=== PATIENT | female | born 1930 | race Caucasian/White ===

== ENCOUNTER 2016-05-26 13:55 | Emergency (ER) | payer OTHER ==
[2016-05-26] MEDS ORDERED: ASPIRIN PO STA (13:57)
--- NOTE | 2016-05-26 14:05 | EKG Report ---
Test Performed on : 05/26/2016 1:56:35 PM Test Reason : CHEST PAIN Blood Pressure : / mmHG Vent. Rate : 084 BPM Atrial Rate : 084 BPM P-R Int : 166 ms QRS Dur : 084 ms QT Int : 386 ms P-R-T Axes : 073 011 062 degrees QTc Int : 456 ms Normal sinus rhythm. Normal ECG When compared with ECG of 11-DEC-2015 10:51, No significant change was found Unconfirmed Result
[2016-05-26 14:19] LABS: MANUAL DIFF NEEDED? NO
[2016-05-26 14:21] LABS: BASO% 0.5 % (0.0-0.8); EOS# 0.09 X1000 (0.0-0.7); EOS% 2.1 % (0.0-10.0); HEMATOCRIT 36.3 % (37.0-47.0); HEMOGLOBIN 12.3 g/dL (12.0-16.0); IMM GRAN# 0.01 X1000 (0.0-0.04); IMM GRAN% 0.2 % (0.0-0.5); LYMPH% 32.2 % (20.5-51.1); MCH 31.1 PG (27-31); MCHC 33.9 g/dL (33-37); MCV 91.7 FL (81-99); MONO# 0.44 X1000 (0.11-0.59); MONO% 10.1 % (1.7-9.3); MPV 9.6 FL (7.4-10.4); NEUT% 54.9 % (42.2-75.2); PLT 247 X1000 (130-400); RBC 3.96 XMIL (4.2-5.4)
[2016-05-26 14:37] LABS: INR 0.99 (0.86-1.15); PROTIME 13.4 Seconds (12.1-15.5); PTT PL 28.6 Seconds (22.6-43.9)
[2016-05-26 14:53] LABS: AGAP 9; ALBUMIN 4.4 g/dL (3.5-5.0); ALKALINE PHOSPHATASE 66 U/L (32-104); BUN 12 mg/dL (8-22); CALCIUM 9.8 mg/dL (8.8-10.2); CHLORIDE 101 mmol/L (98-107); CK PROFILE 102 U/L (24-173); COSMO 278; GOT 22 U/L (10-30); GPT 14 U/L (10-36); MAGNESIUM 2.1 mg/dL (1.5-2.7); POTASSIUM 3.5 mmol/L (3.5-5.1); SODIUM 139 mmol/L (136-145); TCO2 29 mmol/L (25-35); TOTAL PROTEIN 6.7 g/dL (6.3-8.3)
--- NOTE | 2016-05-26 15:04 | PROVIDER DOCUMENTATION ---
HPI-Chest Pain - General Source: patient - History of Present Illness-CP Location: reports: other (L side) Chest Pain Radiation: reports: arms (L), neck Quality of Pain: reports: aching Severity in ED: mild Onset/Duration: 2 days ago Timing: still present, constant Context/Activities at Onset: reports: light activity Modifying Factors: improves with: nothing Associated Symptoms: reports: dizziness, nausea, shortness of breath Nitro Today/Relief: no nitro taken today Aspirin Treatment Today: no aspirin today Prior Chest Pain/Cardiac Workup: reports: no prior chest pain, no prior cardiac workup Similar Symptoms Previously?: Yes Recently Seen Here or By Another Healthcare Provider: No <Giovanna Almendarez - Last Filed: 05/26/16 17:54> <aDvid Nix - Last Filed: 05/26/16 17:58> - General Chief Complaint: Chest Pain Stated Complaint: CHEST PAIN Time Seen by Provider: 05/26/16 14:54 Allergies/Adverse Reactions: Patient Allergies Allergy/AdvReac Type Severity Reaction Status Date / Time adhesive tape Allergy RASH Verified 12/11/15 10:21 Home Medications: Home Medication List Medication Instructions Recorded Confirmed Last Taken Type Amitriptyline [Elavil] 0.5 tab PO HS 12/11/15 12/11/15 12/13/15 05:30 History Cetirizine HCl [Zyrtec] 10 mg PO DAILY 12/11/15 12/11/15 12/13/15 05:30 History Cholecalciferol (Vitamin D3) 2,000 unit PO DAILY 12/11/15 12/11/15 12/13/15 05: 30 History [Vitamin D3] Cyanocobalamin (Vitamin B-12) 1,000 mcg PO DAILY 12/11/15 12/11/15 12/13/15 05: 30 History [Vitamin B-12] Dicyclomine [Bentyl] 10 mg PO TID AC 12/11/15 12/11/15 12/13/15 05:30 History Diphenoxylate/Atropine [Lomotil] 1 each PO 4XDAY PRN PRN 12/11/15 12/11/1512/12 05:30 History Escitalopram Oxalate [Lexapro] 1.5 tab PO DAILY 12/11/15 12/11/15 12/13/15 05: 30 History Fluticasone Propionate [24 Hour 1 spray INH QHS 12/11/15 12/11/15 12/12/15 22: 00 History Allergy Relief] Gabapentin [Neurontin] 300 mg PO TID 12/11/15 12/11/15 12/13/15 05:30 History Hydrocodone/Acetaminophen [[place] 1 each PO PRN PRN 12/11/15 12/11/15 12/13/15 05 :30 History 10-325 Tablet] Lorazepam [Ativan] 0.5 mg PO TID 12/11/15 12/11/15 12/13/15 05:30 History Oxybutynin [Ditropan] 5 mg PO DAILY 12/11/15 12/11/15 12/13/15 05:30 History PRAVAstatin [Pravachol] 40 mg PO QHS 12/11/15 12/11/15 12/12/15 22:00 History Temazepam [Restoril] 15 - 30 mg PO PRN PRN 12/11/15 12/11/15 12/13/15 05:30 History Hydrocodone/APAP 10 mg/325 mg 1 each PO Q4H PRN PRN #60 tablet 12/15/15 Unknown Rx [[place]-10] - History of Present Illness-CP Nature of Presenting Problem: Pt is 85 y/o F presents to the ED with L side chest pain. Pt state CP started Friday and has been constant since. Pt states pain has radiated to neck and down L arm. Pt states intermittent SOB, N and dizziness. Pt denies F (Giovanna Almendarez) Review of Systems - Adult - REVIEW OF SYSTEMS - ADULT Constitutional: denies: chills, fever Eyes: denies: blurred vision, double vision Ears, Nose, Mouth & Throat: denies: ear pain, nose pain, throat pain Cardiovascular: reports: chest pain. denies: heart murmur, irregular heart rate Respiratory: reports: shortness of breath. denies: cough, wheezing Gastrointestinal: reports: nausea. denies: abdominal pain, diarrhea, vomiting Genitourinary: denies: dysuria, hematuria, hesitency Musculoskeletal: denies: bone pain, joint pain, neck pain Integumentary: denies: hives, itching Neurological: reports: dizziness/vertigo (dizziness). denies: headache/ migraines Psychiatric: reports: no symptoms reported Endocrine: reports: no symptoms reported Hematologic/Lymphatic: reports: no symptoms reported Allergic/Immunologic: reports: no symptoms reported All Other Systems: Reviewed and Negative <Giovanna Almendarez - Last Filed: 05/26/16 17:54> Past History - Adult - PAST MEDICAL HISTORY-ADULT Review of Records: reports: Nursing Assessment Review, Medications Reviewed, Social history reviewed & non-contributory. Major Childhood Illnesses: reports: denies history Cardiovascular: reports: HTN, hyperlipidemia Respiratory: reports: denies history Gastrointestinal: reports: denies history Obstetrical/Gynecological: reports: denies history Genitourinary: reports: cancer Musculoskeletal: reports: denies history Neurological: reports: denies history Endocrine/Immune: reports: denies history Other Conditions: reports: denies history - PRIOR SURGERIES/PROCEDURES Surgical/Procedure History: reports: hysterectomy - IMMUNIZATION STATUS Childhood Immunizations: See Nurse Assessment Flu Vaccine: See Nurse Assessment - FAMILY HISTORY Family History: reviewed, not pertinent - SOCIAL HISTORY Smoking: denies Substance Use: alcohol Alcohol Use Frequency: occasionally Number of drinks per typical drinking period:: 2 drinks Living Situation: family <Giovanna Almendarez - Last Filed: 05/26/16 17:54> Physical Exam-General - PHYSICAL EXAM-ADULT Initial Vital Signs Reviewed: Yes - CONSTITUTIONAL General Appearance: appears well, alert, no apparent distress - EYES Eyes: PERRL/EOMI, pink conjunctivae, fundi clear, no AV nicking - HEAD, EARS, NOSE, MOUTH & THROAT HENMT: normocephalic/atraumatic, moist mucous membranes, normal ENT inspection, TMs normal, pharynx normal - NECK Neck: non-tender, full range of motion, supple, normal inspection - RESPIRATORY Respiratory: chest non-tender, lungs clear, normal breath sounds, no pleuratic chest pain, no respiratory distress, no accessory muscle use - CARDIOVASCULAR Cardiovascular: normal peripheral pulses, regular rate, rhythm, no edema, no gallop, no JVD, no murmur - GASTROINTESTINAL (ABDOMEN) Abdominal Exam: normal bowel sounds, non tender, soft, no organomegaly, no pulsatile mass - LYMPHATIC Lymphatic: no adenopathy - MUSCULOSKELETAL Back Exam: normal inspection, no CVA tenderness, no vertebral tenderness Extremity: normal range of motion, non-tender, normal gait, normal inspection, no pedal edema - SKIN Integumentary: normal color, normal turgor, warm/dry - NEUROLOGIC Neurologic: grossly normal - PSYCHIATRIC Psych/Mental Status: normal mood/affect, oriented x 3 <Giovanna Almendarez - Last Filed: 05/26/16 17:54> Progress - EKG 1 Time of EKG reading by physician:: 13:56 EKG Read and Signed by:: David Nix EKG Interpretation (*Must complete 3 of following elements*): Normal Rate: 84 Rhythm: normal sinus rhythm Comments: normal ECG 2 Time of EKG reading by physician:: 16:14 EKG Read and Signed by:: David Nix EKG Interpretation (*Must complete 3 of following elements*): Normal Rate: 74 Rhythm: normal sinus rhythm Comments: normal ECG - XRAY 1 XRAY: Bilateral XRAY Study: Chest Impression: Normal XRAY Interpretation: no acute disease - CT/MRI 1 CT Study: Angiogram Impression: Abnormal (likely atelectasis or fibrosis in the right base rather than pneumonia) CT Results: no PE. <Giovanna Almendarez - Last Filed: 05/26/16 17:54> <David Nix - Last Filed: 05/26/16 17:58> - PLAN OF CARE/RESULTS Progress/Plan/Lab Results: Laboratory Tests 05/26/16 05/26/16 05/26/16 13:58 13:58 13:58 WBC RBC Hgb Hct MCV MCH MCHC RDW Std Deviation Plt Count MPV Immature Gran % (Auto) Neut % (Auto) Lymph % (Auto) [place] % (Auto) Eos % (Auto) Baso % (Auto) Immature Gran # (Auto) Neut # (Auto) Lymph # (Auto) [place] # (Auto) Eos # (Auto) Baso # (Auto) PT INR APTT (Factor Assay) Sodium 139 Potassium 3.5 Chloride 101 Carbon Dioxide 29 Anion Gap 9 BUN 12 Creatinine 0.6 Estimated GFR/1.73 m2 > 60 BUN/Creatinine Ratio 20 Glucose 117 H Calculated Osmolality 278 Calcium 9.8 Magnesium 2.1 Total Bilirubin 0.40 AST 22 ALT 14 Alkaline Phosphatase 66 Creatine Kinase 102 Troponin T < 0.010 Fqg-K-Uwakcrfadlw Pept 100 Total Protein 6.7 Albumin 4.4 Globulin 2.0 Albumin/Globulin Ratio 2.0 05/26/16 05/26/16 13:58 13:58 WBC 4.35 L RBC 3.96 L Hgb 12.3 Hct 36.3 L MCV 91.7 MCH 31.1 H MCHC 33.9 RDW Std Deviation 13.8 Plt Count 247 MPV 9.6 Immature Gran % (Auto) 0.2 Neut % (Auto) 54.9 Lymph % (Auto) 32.2 [place] % (Auto) 10.1 H Eos % (Auto) 2.1 Baso % (Auto) 0.5 Immature Gran # (Auto) 0.01 Neut # (Auto) 2.39 Lymph # (Auto) 1.40 [place] # (Auto) 0.44 Eos # (Auto) 0.09 Baso # (Auto) 0.02 PT 13.4 INR 0.99 APTT (Factor Assay) 28.6 Sodium Potassium Chloride Carbon Dioxide Anion Gap BUN Creatinine Estimated GFR/1.73 m2 BUN/Creatinine Ratio Glucose Calculated Osmolality Calcium Magnesium Total Bilirubin AST ALT Alkaline Phosphatase Creatine Kinase Troponin T Aci-D-Woqmnfjrrzc Pept Total Protein Albumin Globulin Albumin/Globulin Ratio Orders Category Date Time Status Cardiac Monitoring DIRECTED Care 05/26/16 13:57 Active Oxygen Therapy- ED Nursing DIRECTED Care 05/26/16 13:57 Active Saline Loc NOW Care 05/26/16 13:57 Active CHEST-2 VIEWS [RAD] Stat Exams 05/26/16 13:57 Draft CBC WITH ELECTRONIC DIFF [HEME] Stat Lab 05/26/16 13:58 Completed CK PROFILE [SP CHEM] Stat Lab 05/26/16 13:58 Completed COMPREHENSIVE METABOLIC PANEL [CHEM] Stat Lab 05/26/16 13:[address] D-D[address]ER PL [COAG] Stat Lab 05/26/16 14:58 Ordered MAGNESIUM [CHEM] Stat Lab 05/26/16 13:58 Completed PRO B-NATRIURETIC PEPTIDE Stat Lab 05/26/16 13:58 Completed [address]IME WITH INR PL [COAG] Stat Lab 05/26/16 13:[address] [COAG] Stat Lab 05/26/16 13:58 Completed TROPONIN T Stat Lab 05/26/16 13:58 Completed Aspirin Med 05/26/16 13:57 Discontinued 325 mg PO STAT STA EKG [EKG] Stat Ther 05/26/16 13:57 Draft Vital Signs - 24 hr 05/26/16 13:58 Temperature 97.2 F L Pulse Rate 82 Respiratory 20 Rate Blood Pressure 160/79 O2 Sat by Pulse 97 Oximetry Laboratory Tests 05/26/16 05/26/16 05/26/16 13:58 13:58 13:58 WBC RBC Hgb Hct MCV MCH MCHC RDW Std Deviation Plt Count MPV Immature Gran % (Auto) Neut % (Auto) Lymph % (Auto) [place] % (Auto) Eos % (Auto) Baso % (Auto) Immature Gran # (Auto) Neut # (Auto) Lymph # (Auto) [place] # (Auto) Eos # (Auto) Baso # (Auto) PT INR APTT (Factor Assay) D-Dimer Sodium 139 Potassium 3.5 Chloride 101 Carbon Dioxide 29 Anion Gap 9 BUN 12 Creatinine 0.6 Estimated GFR/1.73 m2 > 60 BUN/Creatinine Ratio 20 Glucose 117 H Calculated Osmolality 278 Calcium 9.8 Magnesium 2.1 Total Bilirubin 0.40 AST 22 ALT 14 Alkaline Phosphatase 66 Creatine Kinase 102 Troponin T < 0.010 Jtt-H-Mgjbmowzhca Pept 100 Total Protein 6.7 Albumin 4.4 Globulin 2.0 Albumin/Globulin Ratio 2.0 05/26/16 05/26/16 05/26/16 13:58 13:58 13:58 WBC 4.35 L RBC 3.96 L Hgb 12.3 Hct 36.3 L MCV 91.7 MCH 31.1 H MCHC 33.9 RDW Std Deviation 13.8 Plt Count 247 MPV 9.6 Immature Gran % (Auto) 0.2 Neut % (Auto) 54.9 Lymph % (Auto) 32.2 [place] % (Auto) 10.1 H Eos % (Auto) 2.1 Baso % (Auto) 0.5 Immature Gran # (Auto) 0.01 Neut # (Auto) 2.39 Lymph # (Auto) 1.40 [place] # (Auto) 0.44 Eos # (Auto) 0.09 Baso # (Auto) 0.02 PT 13.4 INR 0.99 APTT (Factor Assay) 28.6 D-Dimer 0.54 H Sodium Potassium Chloride Carbon Dioxide Anion Gap BUN Creatinine Estimated GFR/1.73 m2 BUN/Creatinine Ratio Glucose Calculated Osmolality Calcium Magnesium Total Bilirubin AST ALT Alkaline Phosphatase Creatine Kinase Troponin T Laf-Y-Ayhktyisyde Pept Total Protein Albumin Globulin Albumin/Globulin Ratio 05/26/16 05/26/16 16:00 16:00 WBC RBC Hgb Hct MCV MCH MCHC RDW Std Deviation Plt Count MPV Immature Gran % (Auto) Neut % (Auto) Lymph % (Auto) [place] % (Auto) Eos % (Auto) Baso % (Auto) Immature Gran # (Auto) Neut # (Auto) Lymph # (Auto) [place] # (Auto) Eos # (Auto) Baso # (Auto) PT INR APTT (Factor Assay) D-Dimer Sodium Potassium Chloride Carbon Dioxide Anion Gap BUN Creatinine Estimated GFR/1.73 m2 BUN/Creatinine Ratio Glucose Calculated Osmolality Calcium Magnesium Total Bilirubin AST ALT Alkaline Phosphatase Creatine Kinase 102 Troponin T < 0.010 Uhb-S-Ilqykhccsfn Pept Total Protein Albumin Globulin Albumin/Globulin Ratio (Giovanna Almendarez) Departure <Giovanna Almendarez - Last Filed: 05/26/16 17:54> - Departure Time of Disposition Order: 17:57 Certified Medical Emergency: Emergent <David Nix - Last Filed: 05/26/16 17:58> - Departure DIAGNOSIS: Atypical chest pain Disposition: HOME 01 Condition: Stable Additional Instructions: ED Follow Up Instructions: You have been treated by a care provider in the Emergency Department. These instructions are being provided to you so you can have an understanding of how to care for yourself upon discharge. Upon discharge from the Emergency Department, you are responsible for making arrangements for follow-up care by a physician of your choice. Take all prescribed medications as directed. Return to the Emergency Department immediately for any new or worsening symptoms. You may call the Physician Referral phone number at [phone] to obtain a list of Physicians who are taking new patients. Referrals: Hung Rossi MD [Primary Care Provider] - Attestation - Scribe Verification/Attestation Scribe:: Giovanna Almendarez Acting as Scribe for:: David Nix Scribe documention review:: This chart was documented by a scribe and accurately reflects the service the provider performed and the decisions made by the provider. <Giovanna Almendarez - Last Filed: 05/26/16 17:54> Physician Attestation
--- NOTE | 2016-05-26 15:05 | Diag Imaging Result Document ---
PROCEDURE NAME: CHEST-2 VIEWS - 05/26/2016 FRONTAL AND LATERAL CHEST, 2 VIEWS. FINDINGS: The lungs are well expanded. Heart is not enlarged. The pulmonary vessels are not distended. No pneumonia. No pleural effusions. Old injury to the lateral right 8th rib. No free air beneath the diaphragm. Prior orthopedic replacement of the left shoulder. IMPRESSION: No acute abnormality.
--- NOTE | 2016-05-26 16:48 | EKG Report ---
Test Performed on : 05/26/2016 4:14:21 PM Test Reason : cough Blood Pressure : / mmHG Vent. Rate : 074 BPM Atrial Rate : 074 BPM P-R Int : 182 ms QRS Dur : 086 ms QT Int : 424 ms P-R-T Axes : 063 007 059 degrees QTc Int : 470 ms Normal sinus rhythm. Normal ECG When compared with ECG of 26-MAY-2016 13:56, (Unconfirmed) No significant change was found Unconfirmed Result
--- NOTE | 2016-05-26 18:28 | Diag Imaging Result Document ---
PROCEDURE NAME: ANGIOGRAM/PULMONARY ARTERIES - 05/26/2016 CT CHEST WITH INTRAVENOUS CONTRAST: FINDINGS: No pleural effusions. No thoracic aortic aneurysm or dissection. No cardiomegaly. Normal opacification of the pulmonary arteries and their major branches. No enlarged mediastinal or hilar lymph nodes. Minimal increased markings in the right lung base. No consolidation. No bronchiectasis. IMPRESSION: 1. No pulmonary emboli. 2. Likely atelectasis or fibrosis in the lower right lung rather than pneumonia. A preliminary report was given at 5:52 p.m.
[2016-05-26 18:45] VITALS: BP 152/72
== END 2016-05-26 18:45 | disposition home or self-care (01) ==
LOC: P.ED 13:55
DX: R07.89 Other chest pain (principal); M54.2 Cervicalgia; M79.602 Pain in left arm; R06.02 Shortness of breath; R11.0 Nausea; R42 Dizziness and giddiness; I10 Essential (primary) hypertension; E78.5 Hyperlipidemia, unspecified; Z79.899 Other long term (current) drug therapy; Z85.9 Personal history of malignant neoplasm, unspecified
CPT/HCPCS: 71020; 71275; 80053; 82550; 83735; 83880; 84484; 85025; 85379; 85610; 85730; 93005; Q9967